=== PATIENT | male | born 1990 | race American Indian/Alaskan Native ===

== ENCOUNTER 2021-07-26 14:01 | Emergency (ER) | payer SELFPAY ==
--- NOTE | 2021-07-26 16:42 | Ultrasound Report ---
US pelvic limited INDICATION / CLINICAL INFORMATION: rt groin TTP and pain at incision site COMPARISON: None available. FINDINGS/IMPRESSION: There is a 3.8 cm hypoechoic structure in the area of palpable concern in the right inguinal region, most likely reflecting inguinal hernia. No discrete bowel is seen extending through the mouth of the hernia. Signer Name: Larry Preciado MD Signed: 07/26/2021 4:38 PM Workstation Name: [id number]
--- NOTE | 2021-07-26 18:35 | Emergency Department Report ---
ED General Adult HPI - General Chief complaint: Skin/Abscess/Foreign Body Stated complaint: ABD PAINS Time Seen by Provider: 07/26/21 15:07 Source: patient Mode of arrival: Ambulatory Limitations: No Limitations - History of Present Illness Initial comments: The patient was evaluated in the emergency department for symptoms described in the history of present illness. He/she was evaluated in the context of the global COVID-19 pandemic, which necessitated consideration that the patient might be at risk for infection with the virus that causes COVID-19. Institutional protocols and algorithms that pertain to the evaluation of patients at risk for COVID-19 are in a state of rapid change based on information released by regulatory bodies including the CDC and federal and state organizations. These policies and algorithms were followed during the patient's care in the emergency department. Please note that these policies, procedures and recommendations changed on a rapid basis. 31-year-old -[place] male presents to the emergency room for right inguinal area pain for the last 3 days. Patient states nothing makes it worse nothing makes it better. States the pain is intermittent. He reports that he had a history of a undescended testicle repair 2 years ago. Patient also reports tingling at the tip of his penis. Patient denies any penile discharge denies any unprotected intercourse or concern for STD. Patient denies any testicular swelling no testicular pain. Patient denies any fever no chills no nausea no vomiting. Onset/Timin -: days(s) Location: pelvis (Right side) Severity scale (0 -10): 6 Quality: aching Consistency: intermittent Improves with: none Worsens with: none Associated Symptoms: denies other symptoms Treatments Prior to Arrival: none - Related Data Previous Rx's Medication Instructions Recorded Last Taken Type Naproxen 500 mg PO BID PRN #14 tablet 07/26/21 Unknown Rx Allergies Allergy/AdvReac Type Severity Reaction Status Date / Time No Known Allergies Allergy Unverified 02/03/20 12:32 ED Review of Systems ROS: Stated complaint: ABD PAINS Other details as noted in HPI Comment: All other systems reviewed and negative ED Past Medical Hx - Past Medical History Hx Asthma: Yes - Surgical History Additional Surgical History: FACIAL SURGERY - Social History Smoking Status: Never Smoker Substance Use Type: None - Medications Home Medications: Home Medications Medication Instructions Recorded Confirmed Last Taken Type Naproxen 500 mg PO BID PRN #14 tablet 07/26/21 Unknown Rx ED Physical Exam - General Limitations: No Limitations General appearance: alert, in no apparent distress - Head Head exam: Present: atraumatic, normocephalic - Eye Eye exam: Present: normal appearance - ENT ENT exam: Present: mucous membranes moist - Neck Neck exam: Present: normal inspection - Respiratory Respiratory exam: Present: normal lung sounds bilaterally. Absent: respiratory distress - Cardiovascular Cardiovascular Exam: Present: regular rate, normal rhythm. Absent: systolic murmur, diastolic murmur, rubs, gallop - GI/Abdominal GI/Abdominal exam: Present: soft, normal bowel sounds - Rectal Rectal exam: Present: deferred - exam: Absent: testicular tenderness External exam: Present: swelling (Very mild swelling tenderness to touch nonerythematous) - Extremities Exam Extremities exam: Present: normal inspection - Back Exam Back exam: Present: normal inspection - Neurological Exam Neurological exam: Present: alert, oriented X3 - Psychiatric Psychiatric exam: Present: normal affect, normal mood - Skin Skin exam: Present: warm, dry, intact, normal color. Absent: rash ED Course Vital Signs 07/26/21 14:36 Temperature 98.0 F Pulse Rate 81 Respiratory 20 Rate Blood Pressure 128/77 O2 Sat by Pulse 97 Oximetry ED Medical Decision Making - Lab Data Laboratory Tests 07/26/21 Unknown Urine Color Yellow Urine Turbidity Clear Urine pH 7.0 Ur Specific Ethel 1.023 Urine Protein 30 mg/dl Urine Glucose (UA) Neg Urine Ketones Neg Urine Blood Neg Urine Nitrite Neg Urine Bilirubin Neg Urine Urobilinogen 4.0 Ur Leukocyte Esterase Neg Urine WBC (Auto) 2.0 Urine RBC (Auto) 4.0 U Epithel Cells (Auto) < 1.0 Urine Mucus 3+ Urine Yeast (Budding) Few - Radiology Data Radiology results: report reviewed [facility] [address] [place] [address] Ultrasound Report Signed Patient: JOVITA MCDONALD MR#: [id number] : 1990 Acct:[id number] Age/Sex: 31 / M ADM Date: 07/26/21 Loc: ED Attending Dr: Ordering Physician: CONOR FRAUSTO Date of Service: 07/26/21 Procedure(s): US pelvic limited Accession Number(s): [id number] cc: CONOR FRAUSTO US pelvic limited INDICATION / CLINICAL INFORMATION: rt groin TTP and pain at incision site COMPARISON: None available. FINDINGS/IMPRESSION: There is a 3.8 cm hypoechoic structure in the area of palpable concern in the right inguinal region, most likely reflecting inguinal hernia. No discrete bowel is seen extending through the mouth of the hernia. Signer Name: Alma Preciado MD Signed: 07/26/2021 4:38 PM Workstation Name: [id number] Transcribed By: ANN MARIE Dictated By: ALMA PRECIADO MD Electronically Authenticated By: ALMA PRECIADO MD Signed Date/Time: 07/26/211637 DD/ 34 TD/TT: Print Cancel - Medical Decision Making 31-year-old -[place] male presents to the emergency room for right inguinal area pain for the last 3 days. Patient states nothing makes it worse nothing makes it better. States the pain is intermittent. He reports that he had a history of a undescended testicle repair 2 years ago. Patient also reports tingling at the tip of his penis. Patient denies any penile discharge denies any unprotected intercourse or concern for STD. Patient denies any testicular swelling no testicular pain. Patient denies any fever no chills no nausea no vomiting. Ultrasound ordered and urinalysis. Ultrasound shows There is a 3.8 cm hypoechoic structure in the area of palpable concern in the right inguinal region, most likely reflecting inguinal hernia. Critical care attestation.: If time is entered above; I have spent that time in minutes in the direct care of this critically ill patient, excluding procedure time. ED Disposition Clinical Impression: Right inguinal hernia Disposition: 01 HOME / SELF CARE / HOMELESS Is pt being admited?: No Does the pt Need Aspirin: No Condition: Stable Instructions: Inguinal Hernia, Adult, [id number] Additional Instructions: CT scan shows you have a small hernia on the right inguinal area. Recommend pain medication and to follow-up with general surgeon. I have listed their information below for your convenience. Urinalysis is negative for any infection. Prescriptions: Naproxen 500 mg PO BID PRN #14 tablet PRN Reason: Pain , Severe (7-10) Referrals: PRIMARY CARE, [Primary Care Provider] - 3-5 Days TEJINDER ELDER DO [Staff Physician] - 3-5 Days Time of Disposition: 18:49
[2021-07-26 18:37] LABS: Bilirubin,Urine NEG (Negative); Blood,Urine NEG (Negative); Color,Urine Yellow (Yellow); Mucus,Urine 3+ /HPF
[2021-07-26 19:10] VITALS: BP 122/83
== END 2021-07-26 19:10 | disposition home or self-care (01) ==
LOC: ED 14:01
DX: K40.90 Unilateral inguinal hernia, without obstruction or gangrene, not specified as recurrent (principal); J45.909 Unspecified asthma, uncomplicated; Z98.890 Other specified postprocedural states; Z79.899 Other long term (current) drug therapy
CPT/HCPCS: 76857; 81001; 99284